=== PATIENT | female | born 1970 | race Hispanic/Latino ===

== ENCOUNTER → 2021-01-29 | Outpatient (CLI) | payer OTHER ==
[~2021-01-29] MED LIST: ATOR10 PO; BUDE10.22; CALC600T15 PO; CIPOTIC AD; DASA100T PO; FISH1CAP63 PO; GLIP10TA9 PO; INSLAN SQ; IOHEXOL-350 75 ML VIAL IV ONE; LACT10SO62 PO; LEVO500T2 PO; LOSA25TA41 PO; METF-446 PO; NITR0.4T SL; OLOP2.5D12 OP; TRAZ-185 PO
== END | disposition home or self-care (01) ==
LOC: RAH 09:19
PROVIDERS: ATTEND Family Medicine
DX: M79.604 Pain in right leg (principal); R60.0 Localized edema
CPT/HCPCS: 93971; Q9967

== ENCOUNTER → 2021-09-09 | Outpatient (CLI) | payer OTHER ==
[~2021-09-09] MED LIST changes: +CALC-1125 PO; -CALC600T15 PO; +HONEY 1 APPL/ML TUBE TP ONE; -IOHEXOL-350 75 ML VIAL IV ONE; +LIDOCAINE HCL 4% LTA SOL 4 ML VIAL TP ONE
== END | disposition home or self-care (01) ==
LOC: WHH 10:19
PROVIDERS: ATTEND Family Medicine
DX: T81.89XD Other complications of procedures, not elsewhere classified, subsequent encounter (principal); E11.621 Type 2 diabetes mellitus with foot ulcer; L97.522 Non-pressure chronic ulcer of other part of left foot with fat layer exposed; L02.31 Cutaneous abscess of buttock; C57.4 Malignant neoplasm of uterine adnexa, unspecified; K74.60 Unspecified cirrhosis of liver; R18.0 Malignant ascites; Z79.4 Long term (current) use of insulin; Z79.899 Other long term (current) drug therapy; Z85.528 Personal history of other malignant neoplasm of kidney; Y83.8 Other surgical procedures as the cause of abnormal reaction of the patient, or of later complication, without mention of misadventure at the time of the procedure
CPT/HCPCS: G0463

== ENCOUNTER → 2021-09-23 | Outpatient (CLI) | payer OTHER ==
[~2021-09-23] MED LIST changes: -HONEY 1 APPL/ML TUBE TP ONE; -LIDOCAINE HCL 4% LTA SOL 4 ML VIAL TP ONE
[2021-09-23 11:41] LABS: BASOPHILS % (AUTO) 0.5 % (0.0-5.0); EOSINOPHILS % (AUTO) 0.5 % (0.0-8.0); HEMATOCRIT 40.3 % (36-48); LYMPHOCYTES % (AUTO) 20.9 % (21.0-51.0); MEAN CORPUSCULAR HEMOGLOBIN 31.7 pg (27.0-33.0); MEAN CORPUSCULAR HGB CONC 32.8 g/dL (32.0-36.0); MEAN CORPUSCULAR VOLUME 96.6 fL (79-99); MONOCYTES % (AUTO) 8.6 % (3.0-13.0); NEUTROPHILS % (AUTO) 68.8 % (40.0-77.0); PLATELET COUNT (AUTO) 179 K/uL (130-400); RED BLOOD CELL COUNT(AUTO) 4.17 MIL/uL (4.00-5.50); RED CELL DISTRIBUTION WIDTH 12.9 % (11.0-15.5); WHITE BLOOD COUNT (AUTO) 10.7 K/uL (4.8-10.8)
== END | disposition home or self-care (01) ==
LOC: WHH 10:04
PROVIDERS: ATTEND Family Medicine
DX: T81.89XD Other complications of procedures, not elsewhere classified, subsequent encounter (principal); E11.621 Type 2 diabetes mellitus with foot ulcer; L97.522 Non-pressure chronic ulcer of other part of left foot with fat layer exposed; S31.809D Unspecified open wound of unspecified buttock, subsequent encounter; E11.52 Type 2 diabetes mellitus with diabetic peripheral angiopathy with gangrene; I96 Gangrene, not elsewhere classified; L02.31 Cutaneous abscess of buttock; C57.4 Malignant neoplasm of uterine adnexa, unspecified; K74.60 Unspecified cirrhosis of liver; R18.0 Malignant ascites; Z79.4 Long term (current) use of insulin; Z79.899 Other long term (current) drug therapy; Z85.828 Personal history of other malignant neoplasm of skin; Y83.8 Other surgical procedures as the cause of abnormal reaction of the patient, or of later complication, without mention of misadventure at the time of the procedure; X58.XXXD Exposure to other specified factors, subsequent encounter
CPT/HCPCS: 36415; 85025; G0463

== ENCOUNTER 2021-10-07 17:01 | Observation (INO) | payer OTHER ==
[~2021-10-07] VITALS: Ht 154.9 cm; Wt 78.7 kg
[~2021-10-07 17:01] MED LIST changes: -APIX5TAB PO; -ATOR40TA69 PO; -GABA-529 PO; -MIDO10TA PO; -PHARMACY COMMUNICATION MISC SCH
[2021-10-07 18:27] LABS: HEMATOCRIT 34.5 % (36-48); MEAN CORPUSCULAR HGB CONC 31.6 g/dL (32.0-36.0); RED BLOOD CELL COUNT(AUTO) 3.52 MIL/uL (4.00-5.50); RED CELL DISTRIBUTION WIDTH 14.1 % (11.0-15.5); WHITE BLOOD COUNT (AUTO) 9.5 K/uL (4.8-10.8)
[2021-10-07 18:43] LABS: CREATININE 1.3 mg/dL (0.5-1.5); POTASSIUM 3.9 mmol/L (3.5-5.1)
[2021-10-07 18:46] LABS: INR 1.09 (0.85-1.15); PROTHROMBIN TIME 11.8 SEC (9.6-11.6)
[2021-10-07 18:47] LABS: ALBUMIN 1.5 g/dL (3.5-5.0); BILIRUBIN,TOTAL 0.2 mg/dL (0.2-1.0)
[2021-10-07] MEDS ORDERED: VANCOMYCIN PROTOCOL PER PHARMACY IV SCH (20:00)
[2021-10-07] MEDS ORDERED: VANCOMYCIN 1.5GM/NS 250ML IV ONE ×2 (20:30)
[2021-10-07 22:30] VITALS: BP 95/64
[2021-10-07] MEDS: ZOSYN 3.375GM +NS 50ML IV SCH (23:18)
[2021-10-07] MEDS ORDERED: ACETAMINOPHEN 325 MG TAB PO PRN (23:30)
[2021-10-07] MEDS ORDERED: ACETAMINOPHEN 650 MG SUPPOSITORY RC PRN (23:30)
[2021-10-07] MEDS ORDERED: CLONIDINE HCL 0.1 MG TABLET PO PRN (23:30)
[2021-10-07] MEDS: 0.9%NACL 1000ML 1,000 ML IV SCH (23:30)
[2021-10-07] MEDS ORDERED: HYDRALAZINE 20MG/ML VIAL IV PRN (23:30)
[2021-10-07] MEDS ORDERED: MORPHINE 2 MG SYG IVP PRN (23:30)
[2021-10-08] VITALS (21 sets, daily range): BP systolic 85–99; BP diastolic 51–62
[2021-10-08 04:52] LABS: BASOPHILS % (AUTO) 0.5 % (0.0-5.0); EOSINOPHILS % (AUTO) 0.9 % (0.0-8.0); HEMATOCRIT 32.9 % (36-48); LYMPHOCYTES % (AUTO) 26.1 % (21.0-51.0); MEAN CORPUSCULAR HEMOGLOBIN 30.4 pg (27.0-33.0); MEAN CORPUSCULAR HGB CONC 31.6 g/dL (32.0-36.0); MEAN CORPUSCULAR VOLUME 96.2 fL (79-99); MONOCYTES % (AUTO) 7.6 % (3.0-13.0); NEUTROPHILS % (AUTO) 64.6 % (40.0-77.0); PLATELET COUNT (AUTO) 151 K/uL (130-400); RED BLOOD CELL COUNT(AUTO) 3.42 MIL/uL (4.00-5.50); RED CELL DISTRIBUTION WIDTH 13.8 % (11.0-15.5); WHITE BLOOD COUNT (AUTO) 7.8 K/uL (4.8-10.8)
[2021-10-08 05:12] LABS: CREATININE 1.2 mg/dL (0.5-1.5); POTASSIUM 3.6 mmol/L (3.5-5.1)
[2021-10-08 05:50] LABS: INR 1.05 (0.85-1.15); PROTHROMBIN TIME 10.9 SEC (9.6-11.6)
[2021-10-08] MEDS: ZOSYN 3.375GM +NS 50ML IV SCH ×3 (06:31→20:28)
[2021-10-08] MEDS: INSULIN HUMULIN R 100 UNIT/ML 3ML SQ SCH ×4 (07:30→21:00)
[2021-10-08] MEDS: 0.9%NACL 1000ML 1,000 ML IV SCH ×3 (07:30→15:30)
[2021-10-08] MEDS ORDERED: MIDO10TA PO (07:51)
[2021-10-08] MEDS ORDERED: ATOR40TA69 PO (07:55)
[2021-10-08] MEDS ORDERED: APIX5TAB PO (07:59)
[2021-10-08] MEDS ORDERED: HYDROMORPHONE 0.5 MG SYG (0.5MG/0.5ML) IVP PRN (08:00)
[2021-10-08] MEDS ORDERED: GABA-529 PO (08:02)
[2021-10-08] MEDS: ASPIRIN 81MG CHEW TAB PO SCH (08:06)
[2021-10-08] MEDS: POLYETHYLENE GLYCOL 3350 17 GM POWD.PACK PO SCH (08:07)
[2021-10-08] MEDS ORDERED: VANCOMYCIN 500MG+NS 100ML 100 ML IV SCH (09:00)
[2021-10-08] MEDS ORDERED: PANTOPRAZOLE 40 MG TAB DR PO SCH (09:00)
[2021-10-08] MEDS: ENOXAPARIN SODIUM 40 MG/0.4 ML SYRINGE SQ SCH (09:00)
[2021-10-08] MEDS ORDERED: VANCOMYCIN 500MG VIAL IVPB SCH (12:30)
[2021-10-08] MEDS: VANCOMYCIN 500MG+NS 100ML 100 ML IV SCH ×2 (12:30→20:12)
[2021-10-08] MEDS: 0.9%NACL 100ML IVPB SCH ×2 (12:30→20:29)
[2021-10-08] MEDS ORDERED: BUPIVACAINE/PF 0.5% 30ML VIAL ONE (13:04)
[2021-10-08] MEDS ORDERED: LIDOCAINE HCL 1% 20 ML VIAL ONE (13:04)
[2021-10-08] MEDS ORDERED: MIDAZOLAM HCL 1 MG/ML 2ML VIAL ONE (13:27)
[2021-10-08] MEDS ORDERED: PROPOFOL 10 MG/ML 20ML VIAL IV ONE (13:27)
[2021-10-08] MEDS ORDERED: KETAMINE 50MG/ML SYRINGE 50 MG/ML DISP.SYRIN IV ONE (13:29)
[2021-10-08] MEDS ORDERED: DEXTROSE 50%-WATER 50 ML DISP.SYRIN IV SCH (15:00)
[2021-10-08] MEDS: HYDROMORPHONE 0.5 MG SYG (0.5MG/0.5ML) IVP PRN (19:11)
[2021-10-08] MEDS: HYDROCODONE/ACETAMINOPHEN 5/325 MG TAB PO PRN (22:18)
[2021-10-09 03:10] VITALS: BP 90/54
[2021-10-09] MEDS: HYDROMORPHONE 0.5 MG SYG (0.5MG/0.5ML) IVP PRN (03:45)
[2021-10-09 04:29] LABS: HEMATOCRIT 31.5 % (36-48); MEAN CORPUSCULAR HEMOGLOBIN 30.5 pg (27.0-33.0); MEAN CORPUSCULAR HGB CONC 31.7 g/dL (32.0-36.0); RED BLOOD CELL COUNT(AUTO) 3.28 MIL/uL (4.00-5.50); RED CELL DISTRIBUTION WIDTH 14.1 % (11.0-15.5); WHITE BLOOD COUNT (AUTO) 6.1 K/uL (4.8-10.8)
[2021-10-09 04:41] LABS: CREATININE 0.9 mg/dL (0.5-1.5); MAGNESIUM 2.1 mg/dL (1.80-2.40); PHOSPHORUS 5.2 mg/dL (2.5-4.9); POTASSIUM 4.2 mmol/L (3.5-5.1)
[2021-10-09] MEDS ORDERED: PANTOPRAZOLE 40 MG TAB DR ONE (04:58)
[2021-10-09] MEDS: ZOSYN 3.375GM +NS 50ML IV SCH ×2 (05:18→14:00)
[2021-10-09] MEDS: INSULIN HUMULIN R 100 UNIT/ML 3ML SQ SCH ×3 (06:38→16:30)
[2021-10-09] MEDS ORDERED: PANTOPRAZOLE 40 MG TAB DR PO SCH (07:30)
[2021-10-09] MEDS: 0.9%NACL 1000ML 1,000 ML IV SCH ×2 (07:30→15:30)
[2021-10-09 07:58] VITALS: BP 104/67
[2021-10-09] MEDS: HYDROCODONE/ACETAMINOPHEN 5/325 MG TAB PO PRN (08:34)
[2021-10-09] MEDS: POLYETHYLENE GLYCOL 3350 17 GM POWD.PACK PO SCH (08:35)
[2021-10-09] MEDS: ASPIRIN 81MG CHEW TAB PO SCH (08:35)
[2021-10-09] MEDS: VANCOMYCIN 500MG+NS 100ML 100 ML IV SCH (09:00)
[2021-10-09] MEDS: 0.9%NACL 100ML IVPB SCH (09:00)
[2021-10-09] MEDS: ENOXAPARIN SODIUM 40 MG/0.4 ML SYRINGE SQ SCH (09:00)
[2021-10-09] MEDS ORDERED: MUPIROCIN OINTMENT 22 GM TUBE TP SCH (09:00)
[2021-10-09 12:00] VITALS: BP 90/57
[2021-10-09 16:00] VITALS: BP 100/50
== END 2021-10-09 18:00 | disposition home or self-care (01) ==
LOC: EDH 17:01 → EDHIP 17:02 → 3CH 22:11
PROVIDERS: ADMIT Internal Medicine Critical Care Medicine; ATTEND Internal Medicine Critical Care Medicine
DX: I96 Gangrene, not elsewhere classified (principal); Z20.822 Contact with and (suspected) exposure to COVID-19; E11.621 Type 2 diabetes mellitus with foot ulcer; L97.529 Non-pressure chronic ulcer of other part of left foot with unspecified severity; L03.032 Cellulitis of left toe; E11.52 Type 2 diabetes mellitus with diabetic peripheral angiopathy with gangrene; I10 Essential (primary) hypertension; E78.5 Hyperlipidemia, unspecified; C56.9 Malignant neoplasm of unspecified ovary; K74.60 Unspecified cirrhosis of liver; R18.8 Other ascites; C92.10 Chronic myeloid leukemia, BCR/ABL-positive, not having achieved remission; Z87.891 Personal history of nicotine dependence; Z79.01 Long term (current) use of anticoagulants; Z79.4 Long term (current) use of insulin; Z79.51 Long term (current) use of inhaled steroids; Z79.82 Long term (current) use of aspirin; Z79.84 Long term (current) use of oral hypoglycemic drugs; Z86.718 Personal history of other venous thrombosis and embolism; Z85.528 Personal history of other malignant neoplasm of kidney; Z79.899 Other long term (current) drug therapy; Z85.038 Personal history of other malignant neoplasm of large intestine; Z85.42 Personal history of malignant neoplasm of other parts of uterus; Z90.5 Acquired absence of kidney; Z92.21 Personal history of antineoplastic chemotherapy
CPT/HCPCS: 28820; 36415 ×3; 71045; 80048 ×2; 80053; 80202; 82550 ×2; 82948 ×7; 83735; 83874 ×2; 84100; 84145; 84484 ×2; 85025; 85027 ×2; 85610 ×2; 86850; 86900; 86901; 87070; 87076; 87077; 87186; 87205; 87635; 93005; 93925; 96365; 96366 ×2; 96368; 96375; 96376 ×2; A4215; A4221; A4222; A4223; A6446; G0378 ×42; G0463; J1170 ×2; J1650; J2250; J2543 ×4; J2704; J3370 ×4; J3490 ×2; J7030; J7050

== ENCOUNTER → 2021-10-07 | Outpatient (CLI) | payer OTHER ==
[~2021-10-07] MED LIST changes: +APIX5TAB PO; +ATOR40TA69 PO; +GABA-529 PO; +MIDO10TA PO; +PHARMACY COMMUNICATION MISC SCH
== END | disposition home or self-care (01) ==
LOC: WHH 13:40
PROVIDERS: ATTEND Family Medicine
DX: T81.89XD Other complications of procedures, not elsewhere classified, subsequent encounter (principal); E11.621 Type 2 diabetes mellitus with foot ulcer; L97.522 Non-pressure chronic ulcer of other part of left foot with fat layer exposed; S31.809D Unspecified open wound of unspecified buttock, subsequent encounter; L02.31 Cutaneous abscess of buttock; E11.52 Type 2 diabetes mellitus with diabetic peripheral angiopathy with gangrene; I96 Gangrene, not elsewhere classified; C57.4 Malignant neoplasm of uterine adnexa, unspecified; K74.60 Unspecified cirrhosis of liver; R18.0 Malignant ascites; Z79.4 Long term (current) use of insulin; Z79.899 Other long term (current) drug therapy; Z85.828 Personal history of other malignant neoplasm of skin; Y83.8 Other surgical procedures as the cause of abnormal reaction of the patient, or of later complication, without mention of misadventure at the time of the procedure; X58.XXXD Exposure to other specified factors, subsequent encounter
CPT/HCPCS: G0463

== ENCOUNTER → 2021-10-14 | Outpatient (CLI) | payer OTHER ==
[~2021-10-14] MED LIST changes: +APIX5TAB PO; +ATOR40TA69 PO; +GABA-529 PO; +MIDO10TA PO
== END | disposition home or self-care (01) ==
LOC: WHH 13:34
PROVIDERS: ATTEND Family Medicine
DX: T87.89 Other complications of amputation stump (principal); E11.621 Type 2 diabetes mellitus with foot ulcer; L97.522 Non-pressure chronic ulcer of other part of left foot with fat layer exposed; S31.110A Laceration without foreign body of abdominal wall, right upper quadrant without penetration into peritoneal cavity, initial encounter; S31.809D Unspecified open wound of unspecified buttock, subsequent encounter; L02.31 Cutaneous abscess of buttock; E11.52 Type 2 diabetes mellitus with diabetic peripheral angiopathy with gangrene; I96 Gangrene, not elsewhere classified; C57.4 Malignant neoplasm of uterine adnexa, unspecified; K74.60 Unspecified cirrhosis of liver; R18.0 Malignant ascites; Z79.4 Long term (current) use of insulin; Z79.899 Other long term (current) drug therapy; Z85.828 Personal history of other malignant neoplasm of skin; Y83.5 Amputation of limb(s) as the cause of abnormal reaction of the patient, or of later complication, without mention of misadventure at the time of the procedure; Y92.238 Other place in hospital as the place of occurrence of the external cause; X58.XXXA Exposure to other specified factors, initial encounter; Y93.89 Activity, other specified; Y92.89 Other specified places as the place of occurrence of the external cause; Y99.8 Other external cause status
CPT/HCPCS: G0463

== ENCOUNTER → 2021-10-24 | Outpatient (CLI) | payer OTHER, MEDICARE ==
[~2021-10-24] MED LIST changes: -ATOR10 PO; -BUDE10.22; -CIPOTIC AD; -DASA100T PO; -FISH1CAP63 PO; -GLIP10TA9 PO; -INSLAN SQ; -LACT10SO62 PO; -LEVO500T2 PO; +LIDOCAINE HCL 4% LTA SOL 4 ML VIAL TP ONE; -LOSA25TA41 PO; -METF-446 PO; -NITR0.4T SL; -OLOP2.5D12 OP; -TRAZ-185 PO
== END | disposition home or self-care (01) ==
LOC: WHH 11:12
PROVIDERS: ATTEND Family Medicine
DX: T87.89 Other complications of amputation stump (principal); E11.621 Type 2 diabetes mellitus with foot ulcer; L97.522 Non-pressure chronic ulcer of other part of left foot with fat layer exposed; E11.52 Type 2 diabetes mellitus with diabetic peripheral angiopathy with gangrene; I96 Gangrene, not elsewhere classified; C57.4 Malignant neoplasm of uterine adnexa, unspecified; K74.60 Unspecified cirrhosis of liver; R18.0 Malignant ascites; Z79.4 Long term (current) use of insulin; Z79.899 Other long term (current) drug therapy; Z85.828 Personal history of other malignant neoplasm of skin; Y83.5 Amputation of limb(s) as the cause of abnormal reaction of the patient, or of later complication, without mention of misadventure at the time of the procedure
CPT/HCPCS: G0463

== ENCOUNTER → 2021-10-31 | Outpatient (CLI) | payer OTHER, MEDICARE ==
[~2021-10-31] MED LIST changes: -LIDOCAINE HCL 4% LTA SOL 4 ML VIAL TP ONE
== END | disposition home or self-care (01) ==
LOC: WHH 10:55
PROVIDERS: ATTEND Family Medicine
DX: T87.89 Other complications of amputation stump (principal); T81.89XA Other complications of procedures, not elsewhere classified, initial encounter; E11.621 Type 2 diabetes mellitus with foot ulcer; L97.522 Non-pressure chronic ulcer of other part of left foot with fat layer exposed; L89.626 Pressure-induced deep tissue damage of left heel; L97.421 Non-pressure chronic ulcer of left heel and midfoot limited to breakdown of skin; E11.622 Type 2 diabetes mellitus with other skin ulcer; L89.152 Pressure ulcer of sacral region, stage 2; L98.491 Non-pressure chronic ulcer of skin of other sites limited to breakdown of skin; E11.52 Type 2 diabetes mellitus with diabetic peripheral angiopathy with gangrene; I96 Gangrene, not elsewhere classified; C57.4 Malignant neoplasm of uterine adnexa, unspecified; K74.60 Unspecified cirrhosis of liver; R18.0 Malignant ascites; Z79.4 Long term (current) use of insulin; Z79.899 Other long term (current) drug therapy; Z85.828 Personal history of other malignant neoplasm of skin; Y83.5 Amputation of limb(s) as the cause of abnormal reaction of the patient, or of later complication, without mention of misadventure at the time of the procedure; Y83.8 Other surgical procedures as the cause of abnormal reaction of the patient, or of later complication, without mention of misadventure at the time of the procedure; Y92.238 Other place in hospital as the place of occurrence of the external cause
CPT/HCPCS: G0463

== ENCOUNTER → 2021-11-07 | Outpatient (CLI) | payer OTHER, MEDICARE ==
[~2021-11-07] MED LIST changes: +LIDOCAINE HCL 4% LTA SOL 4 ML VIAL TP ONE
== END | disposition home or self-care (01) ==
LOC: WHH 10:46
PROVIDERS: ATTEND Family Medicine
DX: T87.89 Other complications of amputation stump (principal); T81.89XD Other complications of procedures, not elsewhere classified, subsequent encounter; E11.621 Type 2 diabetes mellitus with foot ulcer; L97.522 Non-pressure chronic ulcer of other part of left foot with fat layer exposed; L89.626 Pressure-induced deep tissue damage of left heel; L97.421 Non-pressure chronic ulcer of left heel and midfoot limited to breakdown of skin; L03.311 Cellulitis of abdominal wall; E11.52 Type 2 diabetes mellitus with diabetic peripheral angiopathy with gangrene; I96 Gangrene, not elsewhere classified; C57.4 Malignant neoplasm of uterine adnexa, unspecified; K74.60 Unspecified cirrhosis of liver; R18.0 Malignant ascites; Z79.4 Long term (current) use of insulin; Z79.899 Other long term (current) drug therapy; Z85.828 Personal history of other malignant neoplasm of skin; Y83.5 Amputation of limb(s) as the cause of abnormal reaction of the patient, or of later complication, without mention of misadventure at the time of the procedure; Y83.8 Other surgical procedures as the cause of abnormal reaction of the patient, or of later complication, without mention of misadventure at the time of the procedure
CPT/HCPCS: G0463

== ENCOUNTER → 2021-11-14 | Outpatient (CLI) | payer OTHER, MEDICARE ==
[~2021-11-14] MED LIST changes: -LIDOCAINE HCL 4% LTA SOL 4 ML VIAL TP ONE
== END | disposition home or self-care (01) ==
LOC: WHH 11:00
PROVIDERS: ATTEND Family Medicine
DX: T87.89 Other complications of amputation stump (principal); E11.621 Type 2 diabetes mellitus with foot ulcer; L97.522 Non-pressure chronic ulcer of other part of left foot with fat layer exposed; L89.626 Pressure-induced deep tissue damage of left heel; L97.421 Non-pressure chronic ulcer of left heel and midfoot limited to breakdown of skin; L03.311 Cellulitis of abdominal wall; L03.116 Cellulitis of left lower limb; E11.52 Type 2 diabetes mellitus with diabetic peripheral angiopathy with gangrene; I96 Gangrene, not elsewhere classified; C57.4 Malignant neoplasm of uterine adnexa, unspecified; R23.3 Spontaneous ecchymoses; K74.60 Unspecified cirrhosis of liver; R18.0 Malignant ascites; Z79.4 Long term (current) use of insulin; Z79.899 Other long term (current) drug therapy; Z85.828 Personal history of other malignant neoplasm of skin; Y83.5 Amputation of limb(s) as the cause of abnormal reaction of the patient, or of later complication, without mention of misadventure at the time of the procedure
CPT/HCPCS: 11042; 11045; A4450; A6209

== ENCOUNTER → 2021-11-21 | Outpatient (CLI) | payer OTHER, MEDICARE ==
[~2021-11-21] MED LIST changes: +LIDOCAINE HCL 4% LTA SOL 4 ML VIAL TP ONE
== END | disposition home or self-care (01) ==
LOC: WHH 10:52
PROVIDERS: ATTEND Family Medicine
DX: T87.89 Other complications of amputation stump (principal); E11.621 Type 2 diabetes mellitus with foot ulcer; L97.522 Non-pressure chronic ulcer of other part of left foot with fat layer exposed; L89.626 Pressure-induced deep tissue damage of left heel; L97.421 Non-pressure chronic ulcer of left heel and midfoot limited to breakdown of skin; L03.311 Cellulitis of abdominal wall; L03.116 Cellulitis of left lower limb; E11.52 Type 2 diabetes mellitus with diabetic peripheral angiopathy with gangrene; I96 Gangrene, not elsewhere classified; C57.4 Malignant neoplasm of uterine adnexa, unspecified; R23.3 Spontaneous ecchymoses; K74.60 Unspecified cirrhosis of liver; R18.0 Malignant ascites; Z79.4 Long term (current) use of insulin; Z79.899 Other long term (current) drug therapy; Z85.828 Personal history of other malignant neoplasm of skin; Y83.5 Amputation of limb(s) as the cause of abnormal reaction of the patient, or of later complication, without mention of misadventure at the time of the procedure
CPT/HCPCS: G0463

== ENCOUNTER → 2021-12-12 | Outpatient (CLI) | payer OTHER, MEDICARE | END | disposition home or self-care (01) | LOC: WHH 10:53 | PROVIDERS: ATTEND Family Medicine | DX: T87.89 Other complications of amputation stump (principal); E11.621 Type 2 diabetes mellitus with foot ulcer; L97.522 Non-pressure chronic ulcer of other part of left foot with fat layer exposed; L89.622 Pressure ulcer of left heel, stage 2; L97.422 Non-pressure chronic ulcer of left heel and midfoot with fat layer exposed; E11.52 Type 2 diabetes mellitus with diabetic peripheral angiopathy with gangrene; I96 Gangrene, not elsewhere classified; L03.311 Cellulitis of abdominal wall; L03.116 Cellulitis of left lower limb; R18.0 Malignant ascites; R23.3 Spontaneous ecchymoses; K74.60 Unspecified cirrhosis of liver; C57.4 Malignant neoplasm of uterine adnexa, unspecified; Z85.828 Personal history of other malignant neoplasm of skin; Z79.4 Long term (current) use of insulin; Z79.899 Other long term (current) drug therapy; Y83.5 Amputation of limb(s) as the cause of abnormal reaction of the patient, or of later complication, without mention of misadventure at the time of the procedure | CPT/HCPCS: 11042; 11045 ==

== ENCOUNTER → 2022-02-06 | Outpatient (CLI) | payer OTHER, MEDICARE | END | disposition home or self-care (01) | LOC: WHH 11:01 | PROVIDERS: ATTEND Family Medicine | DX: T87.89 Other complications of amputation stump (principal); E11.621 Type 2 diabetes mellitus with foot ulcer; L97.522 Non-pressure chronic ulcer of other part of left foot with fat layer exposed; L89.622 Pressure ulcer of left heel, stage 2; S71.002D Unspecified open wound, left hip, subsequent encounter; S91.104D Unspecified open wound of right lesser toe(s) without damage to nail, subsequent encounter; S71.001D Unspecified open wound, right hip, subsequent encounter; E11.52 Type 2 diabetes mellitus with diabetic peripheral angiopathy with gangrene; I96 Gangrene, not elsewhere classified; L03.311 Cellulitis of abdominal wall; L03.116 Cellulitis of left lower limb; R18.0 Malignant ascites; R23.3 Spontaneous ecchymoses; K74.60 Unspecified cirrhosis of liver; C57.4 Malignant neoplasm of uterine adnexa, unspecified; Z85.828 Personal history of other malignant neoplasm of skin; Z79.4 Long term (current) use of insulin; Z79.899 Other long term (current) drug therapy; Y83.5 Amputation of limb(s) as the cause of abnormal reaction of the patient, or of later complication, without mention of misadventure at the time of the procedure; X58.XXXD Exposure to other specified factors, subsequent encounter | CPT/HCPCS: 11042; 11045; G0463 ==

== ENCOUNTER → 2022-02-13 | Outpatient (CLI) | payer OTHER, MEDICARE | END | disposition home or self-care (01) | LOC: WHH 11:03 | PROVIDERS: ATTEND Family Medicine | DX: T87.89 Other complications of amputation stump (principal); E11.621 Type 2 diabetes mellitus with foot ulcer; L97.522 Non-pressure chronic ulcer of other part of left foot with fat layer exposed; L89.623 Pressure ulcer of left heel, stage 3; E11.622 Type 2 diabetes mellitus with other skin ulcer; L98.491 Non-pressure chronic ulcer of skin of other sites limited to breakdown of skin; S71.002D Unspecified open wound, left hip, subsequent encounter; S91.104D Unspecified open wound of right lesser toe(s) without damage to nail, subsequent encounter; S71.001D Unspecified open wound, right hip, subsequent encounter; E11.52 Type 2 diabetes mellitus with diabetic peripheral angiopathy with gangrene; I96 Gangrene, not elsewhere classified; L03.116 Cellulitis of left lower limb; R18.0 Malignant ascites; R23.3 Spontaneous ecchymoses; K74.60 Unspecified cirrhosis of liver; C57.4 Malignant neoplasm of uterine adnexa, unspecified; Z85.828 Personal history of other malignant neoplasm of skin; Z79.4 Long term (current) use of insulin; Z79.899 Other long term (current) drug therapy; Y83.5 Amputation of limb(s) as the cause of abnormal reaction of the patient, or of later complication, without mention of misadventure at the time of the procedure; X58.XXXD Exposure to other specified factors, subsequent encounter | CPT/HCPCS: G0463 ==

== ENCOUNTER → 2022-02-20 | Outpatient (CLI) | payer OTHER, MEDICARE ==
[~2022-02-20] MED LIST changes: +CALC-1058 PO; +CEFD300C3 PO; +COLL30OI TP; +FERR324T PO; +FURO20TA4 PO; +LEVO5TAB13 PO; +MUPI22OI2 TP; +MV-M1TAB57 PO; +SENN-216 PO
== END ==
LOC: WHH 10:19
PROVIDERS: ATTEND Family Medicine
DX: T87.89 Other complications of amputation stump (principal); E11.621 Type 2 diabetes mellitus with foot ulcer; L97.522 Non-pressure chronic ulcer of other part of left foot with fat layer exposed; L89.623 Pressure ulcer of left heel, stage 3; S71.002D Unspecified open wound, left hip, subsequent encounter; S91.104D Unspecified open wound of right lesser toe(s) without damage to nail, subsequent encounter; S71.001D Unspecified open wound, right hip, subsequent encounter; E11.52 Type 2 diabetes mellitus with diabetic peripheral angiopathy with gangrene; I96 Gangrene, not elsewhere classified; R18.0 Malignant ascites; R23.3 Spontaneous ecchymoses; K74.60 Unspecified cirrhosis of liver; C57.4 Malignant neoplasm of uterine adnexa, unspecified; Z79.4 Long term (current) use of insulin; Z79.899 Other long term (current) drug therapy; Z85.528 Personal history of other malignant neoplasm of kidney; Y83.5 Amputation of limb(s) as the cause of abnormal reaction of the patient, or of later complication, without mention of misadventure at the time of the procedure; X58.XXXD Exposure to other specified factors, subsequent encounter
CPT/HCPCS: 11042; 11045

== ENCOUNTER 2022-02-25 17:17 | Inpatient (IN) | payer OTHER, MEDICARE ==
[~2022-02-25] VITALS: Ht 152.4 cm; Wt 78.7 kg
[~2022-02-25 17:17] MED LIST changes: -CALC-1058 PO; -CEFD300C3 PO; -COLL30OI TP; -FERR324T PO; -FURO20TA4 PO; -LEVO5TAB13 PO; -LIDOCAINE HCL 4% LTA SOL 4 ML VIAL TP ONE; -MUPI22OI2 TP; -MV-M1TAB57 PO; -SENN-216 PO
[2022-02-25 18:04] LABS: BASOPHILS % (AUTO) 0.5 % (0.0-5.0); EOSINOPHILS % (AUTO) 0.9 % (0.0-8.0); HEMATOCRIT 29.8 % (36-48); LYMPHOCYTES % (AUTO) 17.6 % (21.0-51.0); MEAN CORPUSCULAR HEMOGLOBIN 31.6 pg (27.0-33.0); MEAN CORPUSCULAR HGB CONC 31.9 g/dL (32.0-36.0); MONOCYTES % (AUTO) 6.6 % (3.0-13.0); NEUTROPHILS % (AUTO) 73.9 % (40.0-77.0); PLATELET COUNT (AUTO) 173 K/uL (130-400); RED BLOOD CELL COUNT(AUTO) 3.01 MIL/uL (4.00-5.50); RED CELL DISTRIBUTION WIDTH 13.3 % (11.0-15.5); WHITE BLOOD COUNT (AUTO) 7.8 K/uL (4.8-10.8)
[2022-02-25 18:19] LABS: ALBUMIN 1.9 g/dL (3.5-5.0); BILIRUBIN,TOTAL 0.3 mg/dL (0.2-1.0); CREATININE 2.1 mg/dL (0.5-1.5); TOTAL PROTEIN, SERUM 6.7 g/dL (6.0-8.3)
[2022-02-25 18:50] LABS: INR 0.97 (0.85-1.15); PARTIAL THROMBOPLASTIN TIME 23.7 SEC (26.3-35.5); PROTHROMBIN TIME 10.6 SEC (9.6-11.6)
[2022-02-25] MEDS ORDERED: VANCOMYCIN PROTOCOL PER PHARMACY IV SCH (20:00)
[2022-02-25] MEDS ORDERED: ACETAMINOPHEN 325 MG TAB PO PRN (20:00)
[2022-02-25] MEDS ORDERED: LACTULOSE 20 GM/30 ML UDCUP PO PRN (20:00)
[2022-02-25] MEDS ORDERED: ONDANSETRON 4MG INJ IVP PRN (20:00)
[2022-02-25] MEDS: 0.9%NACL 1000ML 1,000 ML IV SCH (20:15)
[2022-02-25] MEDS ORDERED: ZOSYN 3.375GM +NS 50ML IV SCH (21:00)
[2022-02-25] MEDS ORDERED: POTASSIUM CHLORIDE 20MEQ/100ML 100 ML IV PRN ×2 (21:30)
[2022-02-25] MEDS ORDERED: DEXTROSE 50%-WATER 50 ML DISP.SYRIN IV PRN (21:30)
[2022-02-25] MEDS ORDERED: GLUCAGON 1MG KIT 1 MG ML IM PRN (21:30)
[2022-02-25] MEDS ORDERED: LIDOCAINE HCL-MPF 1% 2ML VIAL IV PRN ×2 (21:30)
[2022-02-25] MEDS ORDERED: INSULIN HUMULIN R 100 UNIT/ML 3ML ONE (21:30)
[2022-02-25] MEDS ORDERED: POTASSIUM CHLORIDE 10% ELIXIR 20 MEQ/15 ML UDCUP PO PRN (21:30)
[2022-02-25] MEDS: VANCOMYCIN 1G/250ML KIT 250 ML IV SCH (22:05)
[2022-02-25 22:45] VITALS: BP 133/69
[2022-02-25] MEDS ORDERED: FERR324T PO (23:13)
[2022-02-25] MEDS ORDERED: SENN-216 PO (23:13)
[2022-02-25] MEDS ORDERED: FURO20TA4 PO (23:13)
[2022-02-25] MEDS ORDERED: COLL30OI TP (23:13)
[2022-02-25] MEDS ORDERED: MUPI22OI2 TP (23:13)
[2022-02-25] MEDS ORDERED: CALC-1058 PO (23:13)
[2022-02-25] MEDS ORDERED: MV-M1TAB57 PO (23:13)
[2022-02-25] MEDS ORDERED: LEVO5TAB13 PO (23:13)
[2022-02-25] MEDS ORDERED: CEFD300C3 PO (23:15)
[2022-02-26] VITALS (19 sets, daily range): BP systolic 80–133; BP diastolic 43–72
[2022-02-26] MEDS: 0.9%NACL 1000ML 1,000 ML IV SCH ×3 (01:01→16:00)
[2022-02-26 03:30] LABS: BASOPHILS % (AUTO) 0.5 % (0.0-5.0); EOSINOPHILS % (AUTO) 1.6 % (0.0-8.0); HEMATOCRIT 27.8 % (36-48); LYMPHOCYTES % (AUTO) 19.4 % (21.0-51.0); MEAN CORPUSCULAR HEMOGLOBIN 31.7 pg (27.0-33.0); MEAN CORPUSCULAR HGB CONC 32.4 g/dL (32.0-36.0); MEAN CORPUSCULAR VOLUME 97.9 fL (79-99); MONOCYTES % (AUTO) 8.9 % (3.0-13.0); PLATELET COUNT (AUTO) 153 K/uL (130-400); RED BLOOD CELL COUNT(AUTO) 2.84 MIL/uL (4.00-5.50); RED CELL DISTRIBUTION WIDTH 13.5 % (11.0-15.5); WHITE BLOOD COUNT (AUTO) 6.4 K/uL (4.8-10.8)
[2022-02-26 03:45] LABS: CREATININE 1.8 mg/dL (0.5-1.5); MAGNESIUM 1.6 mg/dL (1.80-2.40); POTASSIUM 3.5 mmol/L (3.5-5.1)
[2022-02-26] MEDS: INSULIN HUMULIN R 100 UNIT/ML 3ML SQ SCH ×4 (06:25→21:25)
[2022-02-26] MEDS: METOCLOPRAMIDE 10 MG/2 ML VIAL IVP SCH ×4 (06:27→20:28)
[2022-02-26] MEDS ORDERED: CEFEPIME HCL 2 GM VIAL IVP SCH (06:30)
[2022-02-26] MEDS ORDERED: ACETAMINOPHEN 650 MG SUPPOSITORY RC PRN (07:00)
[2022-02-26] MEDS ORDERED: RENAL DOSE IV PRN (07:00)
[2022-02-26] MEDS ORDERED: MAGNESIUM 2GM PREMIX 50ML 50 ML IV PRN (07:00)
[2022-02-26] MEDS: ENOXAPARIN SODIUM 80 MG/0.8 ML SQ SCH (08:28)
[2022-02-26] MEDS: CEFEPIME HCL 2 GM VIAL IVP SCH (09:11)
[2022-02-26] MEDS: MIDODRINE HCL 5 MG TABLET PO SCH ×3 (09:11→20:28)
[2022-02-26] MEDS: PANTOPRAZOLE 40 MG/VIAL IVP SCH (09:11)
[2022-02-26 09:44] LABS: APPEARANCE,URINE CLEAR (CLEAR); BILIRUBIN,URINE NEGATIVE (NEGATIVE); COLOR,URINE YELLOW (YELLOW); GLUCOSE, URINE (UA) NEGATIVE (NEGATIVE); KETONES,URINE NEGATIVE (NEGATIVE); LEUKOCYTE ESTERASE ,URINE NEGATIVE (NEGATIVE); NITRATE,URINE NEGATIVE (NEGATIVE); OCCULT BLOOD,URINE NEGATIVE (NEGATIVE); PROTEIN,URINE 30 mg/dL (NEGATIVE); UROBILINOGEN,URINE 0.2 mg/dL (0.2-1.0)
[2022-02-26 09:49] LABS: BACTERIA,URINE Rare /HPF (None Seen); RBC,URINE 0-1 /HPF (0-1); SQUAMOUS EPITHELIAL CELL,UR Rare /HPF (0-2); WBC,URINE 0-1 /HPF (0-1)
[2022-02-26] MEDS ORDERED: BUPIVACAINE/PF 0.25% 30ML VIAL IJ ONE (13:12)
[2022-02-26] MEDS ORDERED: LIDOCAINE HCL 1% 20 ML VIAL ONE (13:12)
[2022-02-26] MEDS ORDERED: FENTANYL CITRATE PF 50 MCG/1 ML 2ML VIAL ONE (13:18)
[2022-02-26] MEDS ORDERED: MIDAZOLAM HCL 1 MG/ML 2ML VIAL ONE (13:18)
[2022-02-26] MEDS ORDERED: CEFAZOLIN SODIUM 1 GM VIAL ONE (13:25)
[2022-02-26] MEDS ORDERED: BACITRACIN 28.4 GM OINT TP ONE (13:43)
[2022-02-26] MEDS ORDERED: EPHEDRINE SULFATE 50 MG/ML AMPULE ONE (14:11)
[2022-02-26] MEDS: ACETAMINOPHEN 325 MG TAB PO PRN ×2 (16:21→23:02)
[2022-02-26] MEDS: KCL 20 MEQ ERTAB PO PRN ×2 (16:25→17:58)
[2022-02-26] MEDS ORDERED: 0.9% NACL 250ML 250 ML ONE (20:24)
[2022-02-26] MEDS: VANCOMYCIN 1G/250ML KIT 250 ML IV SCH (20:28)
[2022-02-27] VITALS: BP 124/71
[2022-02-27 03:52] LABS: BASOPHILS % (AUTO) 0.5 % (0.0-5.0); EOSINOPHILS % (AUTO) 1.1 % (0.0-8.0); HEMATOCRIT 27.6 % (36-48); LYMPHOCYTES % (AUTO) 14.9 % (21.0-51.0); MEAN CORPUSCULAR HEMOGLOBIN 30.3 pg (27.0-33.0); MEAN CORPUSCULAR HGB CONC 30.4 g/dL (32.0-36.0); MEAN CORPUSCULAR VOLUME 99.6 fL (79-99); MONOCYTES % (AUTO) 7.3 % (3.0-13.0); NEUTROPHILS % (AUTO) 75.7 % (40.0-77.0); PLATELET COUNT (AUTO) 147 K/uL (130-400); RED BLOOD CELL COUNT(AUTO) 2.77 MIL/uL (4.00-5.50); RED CELL DISTRIBUTION WIDTH 13.6 % (11.0-15.5); WHITE BLOOD COUNT (AUTO) 6.6 K/uL (4.8-10.8)
[2022-02-27 04:00] VITALS: BP 102/62
[2022-02-27 04:11] LABS: CREATININE 1.5 mg/dL (0.5-1.5); MAGNESIUM 1.9 mg/dL (1.80-2.40); POTASSIUM 4.2 mmol/L (3.5-5.1)
[2022-02-27 04:13] LABS: PLATELET MORPHOLOGY PLT CLUMPS PRESENT
[2022-02-27] MEDS: INSULIN HUMULIN R 100 UNIT/ML 3ML SQ SCH ×3 (06:08→16:30)
[2022-02-27] MEDS: METOCLOPRAMIDE 10 MG/2 ML VIAL IVP SCH ×3 (06:43→16:30)
[2022-02-27] MEDS: CEFEPIME HCL 2 GM VIAL IVP SCH (06:44)
[2022-02-27 07:58] VITALS: BP 119/68
[2022-02-27] MEDS: PANTOPRAZOLE 40 MG/VIAL IVP SCH (09:03)
[2022-02-27] MEDS: MIDODRINE HCL 5 MG TABLET PO SCH ×2 (09:03→17:06)
[2022-02-27] MEDS: ENOXAPARIN SODIUM 80 MG/0.8 ML SQ SCH (09:08)
[2022-02-27 11:54] VITALS: BP 112/67
[2022-02-27 17:00] VITALS: BP 118/68
[2022-02-27] MEDS ORDERED: SULF1TAB41 PO (17:02)
== END 2022-02-27 17:45 | disposition home or self-care (01) | DRG 854 ==
LOC: EDH 17:17 → EDHIP 17:18 → 4DH 21:43
PROVIDERS: ADMIT Internal Medicine; ATTEND Internal Medicine
PROC: 0Y6U0Z0 Detachment at Left 3rd Toe, Complete, Open Approach (ICD-10-PCS; 2022-02-26)
PROC: 0Y6S0Z0 Detachment at Left 2nd Toe, Complete, Open Approach (ICD-10-PCS; principal; 2022-02-26 13:18)
DX: A41.9 Sepsis, unspecified organism (principal); E11.52 Type 2 diabetes mellitus with diabetic peripheral angiopathy with gangrene; M86.9 Osteomyelitis, unspecified; C92.11 Chronic myeloid leukemia, BCR/ABL-positive, in remission; I96 Gangrene, not elsewhere classified; L97.429 Non-pressure chronic ulcer of left heel and midfoot with unspecified severity; E11.621 Type 2 diabetes mellitus with foot ulcer; Z20.822 Contact with and (suspected) exposure to COVID-19; E11.69 Type 2 diabetes mellitus with other specified complication; E78.5 Hyperlipidemia, unspecified; I10 Essential (primary) hypertension; E66.9 Obesity, unspecified; K76.0 Fatty (change of) liver, not elsewhere classified; E11.65 Type 2 diabetes mellitus with hyperglycemia; Z79.01 Long term (current) use of anticoagulants; Z85.528 Personal history of other malignant neoplasm of kidney; Z89.432 Acquired absence of left foot; Z68.33 Body mass index [BMI] 33.0-33.9, adult
CPT/HCPCS: 36415; 71045; 80048; 80053; 81001; 82948; 83605; 83735; 84100; 85025; 85610; 85730; 86850; 86900; 86901; 87040; 87635; 93005; 93306; C9113; G0378; J0690; J0692; J1650; J1815; J2250; J2543; J2765; J3010; J3370; J3475; J3490; J7030; J7050

== ENCOUNTER → 2022-03-06 | Outpatient (CLI) | payer OTHER, MEDICARE ==
[~2022-03-06] MED LIST changes: -APIX5TAB PO; +CALC-1058 PO; +CEFD300C3 PO; +COLL30OI TP; +FERR324T PO; +FURO20TA4 PO; -GABA-529 PO; +LEVO5TAB13 PO; +LIDOCAINE HCL 4% LTA SOL 4 ML VIAL TP ONE; +MUPI22OI2 TP; +MV-M1TAB57 PO; +SENN-216 PO; +SULF1TAB41 PO
== END | disposition home or self-care (01) ==
LOC: WHH 11:05
PROVIDERS: ATTEND Family Medicine
DX: T87.89 Other complications of amputation stump (principal); E11.621 Type 2 diabetes mellitus with foot ulcer; L97.522 Non-pressure chronic ulcer of other part of left foot with fat layer exposed; L89.623 Pressure ulcer of left heel, stage 3; S71.002D Unspecified open wound, left hip, subsequent encounter; S91.104D Unspecified open wound of right lesser toe(s) without damage to nail, subsequent encounter; S71.001D Unspecified open wound, right hip, subsequent encounter; E11.52 Type 2 diabetes mellitus with diabetic peripheral angiopathy with gangrene; I96 Gangrene, not elsewhere classified; R18.0 Malignant ascites; R23.3 Spontaneous ecchymoses; K74.60 Unspecified cirrhosis of liver; C57.4 Malignant neoplasm of uterine adnexa, unspecified; Z79.4 Long term (current) use of insulin; Z79.899 Other long term (current) drug therapy; Z85.528 Personal history of other malignant neoplasm of kidney; Y83.5 Amputation of limb(s) as the cause of abnormal reaction of the patient, or of later complication, without mention of misadventure at the time of the procedure; X58.XXXD Exposure to other specified factors, subsequent encounter
CPT/HCPCS: 11042; 11045

== ENCOUNTER → 2022-03-27 | Outpatient (CLI) | payer OTHER, MEDICARE | END | disposition home or self-care (01) | LOC: WHH 11:07 | PROVIDERS: ATTEND Family Medicine | DX: T87.89 Other complications of amputation stump (principal); E11.621 Type 2 diabetes mellitus with foot ulcer; L97.522 Non-pressure chronic ulcer of other part of left foot with fat layer exposed; E11.622 Type 2 diabetes mellitus with other skin ulcer; L97.212 Non-pressure chronic ulcer of right calf with fat layer exposed; L89.623 Pressure ulcer of left heel, stage 3; S91.104D Unspecified open wound of right lesser toe(s) without damage to nail, subsequent encounter; S71.002D Unspecified open wound, left hip, subsequent encounter; E11.52 Type 2 diabetes mellitus with diabetic peripheral angiopathy with gangrene; I96 Gangrene, not elsewhere classified; R18.0 Malignant ascites; R23.3 Spontaneous ecchymoses; K74.60 Unspecified cirrhosis of liver; C57.4 Malignant neoplasm of uterine adnexa, unspecified; Z85.528 Personal history of other malignant neoplasm of kidney; Z79.4 Long term (current) use of insulin; Z79.899 Other long term (current) drug therapy; X58.XXXD Exposure to other specified factors, subsequent encounter; Y83.5 Amputation of limb(s) as the cause of abnormal reaction of the patient, or of later complication, without mention of misadventure at the time of the procedure | CPT/HCPCS: 11042; A6209 ==

== ENCOUNTER → 2022-04-01 | Outpatient (CLI) | payer OTHER, MEDICARE ==
[~2022-04-01] MED LIST changes: -LIDOCAINE HCL 4% LTA SOL 4 ML VIAL TP ONE
== END | disposition home or self-care (01) ==
LOC: RAH 12:54
PROVIDERS: ATTEND Family Medicine
DX: L97.819 Non-pressure chronic ulcer of other part of right lower leg with unspecified severity (principal); L97.829 Non-pressure chronic ulcer of other part of left lower leg with unspecified severity; E11.9 Type 2 diabetes mellitus without complications; E11.52 Type 2 diabetes mellitus with diabetic peripheral angiopathy with gangrene
CPT/HCPCS: 93925; 93970

== ENCOUNTER → 2022-04-10 | Outpatient (CLI) | payer OTHER, MEDICARE ==
[~2022-04-10] MED LIST changes: +LIDOCAINE HCL 4% LTA SOL 4 ML VIAL ONE
== END | disposition home or self-care (01) ==
LOC: WHH 10:52
PROVIDERS: ATTEND Family Medicine
DX: T87.89 Other complications of amputation stump (principal); E11.621 Type 2 diabetes mellitus with foot ulcer; L97.522 Non-pressure chronic ulcer of other part of left foot with fat layer exposed; L89.623 Pressure ulcer of left heel, stage 3; S91.104D Unspecified open wound of right lesser toe(s) without damage to nail, subsequent encounter; S71.002D Unspecified open wound, left hip, subsequent encounter; E11.622 Type 2 diabetes mellitus with other skin ulcer; L97.211 Non-pressure chronic ulcer of right calf limited to breakdown of skin; L98.491 Non-pressure chronic ulcer of skin of other sites limited to breakdown of skin; C57.4 Malignant neoplasm of uterine adnexa, unspecified; E11.52 Type 2 diabetes mellitus with diabetic peripheral angiopathy with gangrene; R18.0 Malignant ascites; R23.3 Spontaneous ecchymoses; I96 Gangrene, not elsewhere classified; K74.60 Unspecified cirrhosis of liver; Z85.828 Personal history of other malignant neoplasm of skin; Z79.4 Long term (current) use of insulin; Z79.899 Other long term (current) drug therapy; X58.XXXD Exposure to other specified factors, subsequent encounter; Y83.5 Amputation of limb(s) as the cause of abnormal reaction of the patient, or of later complication, without mention of misadventure at the time of the procedure
CPT/HCPCS: 11042; A6209

== ENCOUNTER → 2022-04-28 | Outpatient (CLI) | payer OTHER, MEDICARE ==
[~2022-04-28] MED LIST changes: -LIDOCAINE HCL 4% LTA SOL 4 ML VIAL ONE; +LIDOCAINE HCL 4% LTA SOL 4 ML VIAL TP ONE
== END | disposition home or self-care (01) ==
LOC: WHH 11:29
PROVIDERS: ATTEND Family Medicine
DX: T87.89 Other complications of amputation stump (principal); E11.621 Type 2 diabetes mellitus with foot ulcer; L97.522 Non-pressure chronic ulcer of other part of left foot with fat layer exposed; L89.623 Pressure ulcer of left heel, stage 3; S91.104D Unspecified open wound of right lesser toe(s) without damage to nail, subsequent encounter; S71.002D Unspecified open wound, left hip, subsequent encounter; E11.52 Type 2 diabetes mellitus with diabetic peripheral angiopathy with gangrene; I96 Gangrene, not elsewhere classified; C57.4 Malignant neoplasm of uterine adnexa, unspecified; R18.0 Malignant ascites; R23.3 Spontaneous ecchymoses; K74.60 Unspecified cirrhosis of liver; Z85.528 Personal history of other malignant neoplasm of kidney; Z79.4 Long term (current) use of insulin; Z79.899 Other long term (current) drug therapy; Y83.5 Amputation of limb(s) as the cause of abnormal reaction of the patient, or of later complication, without mention of misadventure at the time of the procedure
CPT/HCPCS: 11042; A6209

== ENCOUNTER → 2022-05-05 | Outpatient (CLI) | payer OTHER, MEDICARE | END | disposition home or self-care (01) | LOC: WHH 11:06 | PROVIDERS: ATTEND Family Medicine | DX: T87.89 Other complications of amputation stump (principal); E11.621 Type 2 diabetes mellitus with foot ulcer; L97.522 Non-pressure chronic ulcer of other part of left foot with fat layer exposed; L89.623 Pressure ulcer of left heel, stage 3; S91.104D Unspecified open wound of right lesser toe(s) without damage to nail, subsequent encounter; S71.002D Unspecified open wound, left hip, subsequent encounter; E11.52 Type 2 diabetes mellitus with diabetic peripheral angiopathy with gangrene; I96 Gangrene, not elsewhere classified; C57.4 Malignant neoplasm of uterine adnexa, unspecified; R18.0 Malignant ascites; R23.3 Spontaneous ecchymoses; K74.60 Unspecified cirrhosis of liver; Z85.528 Personal history of other malignant neoplasm of kidney; Z79.4 Long term (current) use of insulin; Z79.899 Other long term (current) drug therapy; Y83.5 Amputation of limb(s) as the cause of abnormal reaction of the patient, or of later complication, without mention of misadventure at the time of the procedure | CPT/HCPCS: G0463 ==

== ENCOUNTER 2022-05-12 11:55 | Day surgery (SDC) | payer OTHER, MEDICARE ==
[2022-05-08 14:08] LABS: BASOPHILS % (AUTO) 0.4 % (0.0-5.0); HEMATOCRIT 31.2 % (36-48); LYMPHOCYTES % (AUTO) 19.6 % (21.0-51.0); MEAN CORPUSCULAR HGB CONC 32.1 g/dL (32.0-36.0); MEAN CORPUSCULAR VOLUME 96.6 fL (79-99); MONOCYTES % (AUTO) 7.5 % (3.0-13.0); NEUTROPHILS % (AUTO) 71.1 % (40.0-77.0); PLATELET COUNT (AUTO) 167 K/uL (130-400); RED BLOOD CELL COUNT(AUTO) 3.23 MIL/uL (4.00-5.50); RED CELL DISTRIBUTION WIDTH 13.8 % (11.0-15.5); WHITE BLOOD COUNT (AUTO) 6.9 K/uL (4.8-10.8)
[2022-05-08 14:18] LABS: CREATININE 1.4 mg/dL (0.5-1.5); POTASSIUM 4.7 mmol/L (3.5-5.1)
[2022-05-08 14:20] LABS: INR 0.99 (0.85-1.15); PROTHROMBIN TIME 10.8 SEC (9.6-11.6)
[2022-05-08 14:22] LABS: PARTIAL THROMBOPLASTIN TIME 24.8 SEC (26.3-35.5)
[~2022-05-12] VITALS: Ht 152.4 cm; Wt 83.9 kg
[~2022-05-12 11:55] MED LIST changes: -LIDOCAINE HCL 4% LTA SOL 4 ML VIAL TP ONE
[2022-05-12] MEDS ORDERED: 0.9%NACL 1000ML 1,000 ML IV ONE (12:54)
[2022-05-12 13:02] VITALS: BP 106/61
[2022-05-12] MEDS ORDERED: LIDOCAINE HCL 400MG/20ML VIAL ONE (13:34)
[2022-05-12] MEDS ORDERED: MIDAZOLAM HCL 1 MG/ML 2ML VIAL ONE (13:57)
[2022-05-12] MEDS ORDERED: FENTANYL CITRATE PF 50 MCG/1 ML 2ML VIAL ONE (13:59)
[2022-05-12 15:00] VITALS: BP 104/61
[2022-05-12 15:15] VITALS: BP 115/65
[2022-05-12 15:30] VITALS: BP 113/67
== END 2022-05-12 15:40 | disposition home or self-care (01) ==
LOC: DAH 11:55
PROVIDERS: ATTEND Family Medicine
DX: C78.6 Secondary malignant neoplasm of retroperitoneum and peritoneum (principal); R18.0 Malignant ascites; E11.22 Type 2 diabetes mellitus with diabetic chronic kidney disease; I12.9 Hypertensive chronic kidney disease with stage 1 through stage 4 chronic kidney disease, or unspecified chronic kidney disease; N18.2 Chronic kidney disease, stage 2 (mild); E11.42 Type 2 diabetes mellitus with diabetic polyneuropathy; E11.319 Type 2 diabetes mellitus with unspecified diabetic retinopathy without macular edema; E11.43 Type 2 diabetes mellitus with diabetic autonomic (poly)neuropathy; K31.84 Gastroparesis; E11.621 Type 2 diabetes mellitus with foot ulcer; I70.262 Atherosclerosis of native arteries of extremities with gangrene, left leg; E11.52 Type 2 diabetes mellitus with diabetic peripheral angiopathy with gangrene; E66.01 Morbid (severe) obesity due to excess calories; F32.9 Major depressive disorder, single episode, unspecified; K21.9 Gastro-esophageal reflux disease without esophagitis; E78.00 Pure hypercholesterolemia, unspecified; Z87.891 Personal history of nicotine dependence; Z86.010 Personal history of colon polyps; Z98.890 Other specified postprocedural states; Z90.49 Acquired absence of other specified parts of digestive tract; Z82.49 Family history of ischemic heart disease and other diseases of the circulatory system; Z83.3 Family history of diabetes mellitus; Z82.0 Family history of epilepsy and other diseases of the nervous system; Z79.01 Long term (current) use of anticoagulants; Z79.899 Other long term (current) drug therapy; Z68.34 Body mass index [BMI] 34.0-34.9, adult
CPT/HCPCS: 80048; 85025; 85610; 85730; 36415; 49418; 75989; 82948; A7048; J3010; J3490; J7030; J2250; J1644; A4450; A4215; A4222; A4221; A4663; A4216; A4606; A4223 ×3; 10030; 11042; 99156; 99157

== ENCOUNTER → 2022-05-19 | Outpatient (CLI) | payer OTHER, MEDICARE ==
[~2022-05-19] MED LIST changes: +LIDOCAINE HCL 4% LTA SOL 4 ML VIAL TP ONE
== END | disposition home or self-care (01) ==
LOC: WHH 10:56
PROVIDERS: ATTEND Family Medicine
DX: T87.89 Other complications of amputation stump (principal); L89.623 Pressure ulcer of left heel, stage 3; E11.621 Type 2 diabetes mellitus with foot ulcer; L97.521 Non-pressure chronic ulcer of other part of left foot limited to breakdown of skin; L97.511 Non-pressure chronic ulcer of other part of right foot limited to breakdown of skin; E11.52 Type 2 diabetes mellitus with diabetic peripheral angiopathy with gangrene; I96 Gangrene, not elsewhere classified; C57.4 Malignant neoplasm of uterine adnexa, unspecified; R18.0 Malignant ascites; R23.3 Spontaneous ecchymoses; K74.60 Unspecified cirrhosis of liver; Z85.528 Personal history of other malignant neoplasm of kidney; Z79.4 Long term (current) use of insulin; Z79.899 Other long term (current) drug therapy; Y83.5 Amputation of limb(s) as the cause of abnormal reaction of the patient, or of later complication, without mention of misadventure at the time of the procedure
CPT/HCPCS: 11042

== ENCOUNTER → 2022-05-26 | Outpatient (CLI) | payer OTHER, MEDICARE ==
[~2022-05-26] MED LIST changes: +GENTAMICIN 15 GM CREAM TP ONE
== END | disposition home or self-care (01) ==
LOC: WHH 11:02
PROVIDERS: ATTEND Family Medicine
DX: T87.89 Other complications of amputation stump (principal); L89.623 Pressure ulcer of left heel, stage 3; E11.621 Type 2 diabetes mellitus with foot ulcer; L97.511 Non-pressure chronic ulcer of other part of right foot limited to breakdown of skin; L97.521 Non-pressure chronic ulcer of other part of left foot limited to breakdown of skin; S81.801D Unspecified open wound, right lower leg, subsequent encounter; E11.52 Type 2 diabetes mellitus with diabetic peripheral angiopathy with gangrene; I96 Gangrene, not elsewhere classified; C57.4 Malignant neoplasm of uterine adnexa, unspecified; R18.0 Malignant ascites; R23.3 Spontaneous ecchymoses; K74.60 Unspecified cirrhosis of liver; Z85.528 Personal history of other malignant neoplasm of kidney; Z79.4 Long term (current) use of insulin; Z79.899 Other long term (current) drug therapy; Y83.5 Amputation of limb(s) as the cause of abnormal reaction of the patient, or of later complication, without mention of misadventure at the time of the procedure; X58.XXXD Exposure to other specified factors, subsequent encounter
CPT/HCPCS: 11042; 87070; 87077; 87186; A4450

== ENCOUNTER → 2022-05-30 | Outpatient (CLI) | payer OTHER, MEDICARE ==
[~2022-05-30] MED LIST changes: -GENTAMICIN 15 GM CREAM TP ONE; -LIDOCAINE HCL 4% LTA SOL 4 ML VIAL TP ONE
[2022-05-30 13:05] LABS: HEMATOCRIT 31.1 % (36-48); MEAN CORPUSCULAR HEMOGLOBIN 31.2 pg (27.0-33.0); MEAN CORPUSCULAR HGB CONC 33.1 g/dL (32.0-36.0); MEAN CORPUSCULAR VOLUME 94.2 fL (79-99); RED BLOOD CELL COUNT(AUTO) 3.3 MIL/uL (4.00-5.50); RED CELL DISTRIBUTION WIDTH 13.2 % (11.0-15.5); WHITE BLOOD COUNT (AUTO) 9.2 K/uL (4.8-10.8)
[2022-05-30 13:27] LABS: INR 1.01 (0.85-1.15)
[2022-05-30 13:28] LABS: PARTIAL THROMBOPLASTIN TIME 26.8 SEC (26.3-35.5)
== END | disposition home or self-care (01) ==
LOC: EDSTATUS 11:30 → DAH 12:25
PROVIDERS: ATTEND Family Medicine
DX: R18.8 Other ascites (principal); E11.9 Type 2 diabetes mellitus without complications
CPT/HCPCS: 36415; 76705; 82948; 85027; 85610; 85730

== ENCOUNTER → 2022-06-02 | Outpatient (CLI) | payer OTHER, MEDICARE ==
[~2022-06-02] MED LIST changes: +LIDOCAINE HCL 4% LTA SOL 4 ML VIAL TP ONE
== END | disposition home or self-care (01) ==
LOC: WHH 10:53
PROVIDERS: ATTEND Family Medicine
DX: L89.623 Pressure ulcer of left heel, stage 3 (principal); T87.89 Other complications of amputation stump; E11.621 Type 2 diabetes mellitus with foot ulcer; L97.511 Non-pressure chronic ulcer of other part of right foot limited to breakdown of skin; L97.521 Non-pressure chronic ulcer of other part of left foot limited to breakdown of skin; S81.801D Unspecified open wound, right lower leg, subsequent encounter; S91.301D Unspecified open wound, right foot, subsequent encounter; E11.52 Type 2 diabetes mellitus with diabetic peripheral angiopathy with gangrene; I96 Gangrene, not elsewhere classified; C57.4 Malignant neoplasm of uterine adnexa, unspecified; R18.0 Malignant ascites; R23.3 Spontaneous ecchymoses; K74.60 Unspecified cirrhosis of liver; Z85.528 Personal history of other malignant neoplasm of kidney; Z79.4 Long term (current) use of insulin; Z79.899 Other long term (current) drug therapy; Y83.5 Amputation of limb(s) as the cause of abnormal reaction of the patient, or of later complication, without mention of misadventure at the time of the procedure; X58.XXXD Exposure to other specified factors, subsequent encounter
CPT/HCPCS: 11042; A6197

== ENCOUNTER → 2022-06-09 | Outpatient (CLI) | payer OTHER, MEDICARE | END | disposition home or self-care (01) | LOC: WHH 10:58 | PROVIDERS: ATTEND Family Medicine | DX: E11.621 Type 2 diabetes mellitus with foot ulcer (principal); L97.512 Non-pressure chronic ulcer of other part of right foot with fat layer exposed; L97.521 Non-pressure chronic ulcer of other part of left foot limited to breakdown of skin; T87.89 Other complications of amputation stump; S81.801D Unspecified open wound, right lower leg, subsequent encounter; S91.301D Unspecified open wound, right foot, subsequent encounter; E11.52 Type 2 diabetes mellitus with diabetic peripheral angiopathy with gangrene; I96 Gangrene, not elsewhere classified; C57.4 Malignant neoplasm of uterine adnexa, unspecified; R18.0 Malignant ascites; R23.3 Spontaneous ecchymoses; K74.60 Unspecified cirrhosis of liver; Z85.528 Personal history of other malignant neoplasm of kidney; Z79.4 Long term (current) use of insulin; Z79.899 Other long term (current) drug therapy; Y83.5 Amputation of limb(s) as the cause of abnormal reaction of the patient, or of later complication, without mention of misadventure at the time of the procedure; X58.XXXD Exposure to other specified factors, subsequent encounter | CPT/HCPCS: 11042; A6197 ==

== ENCOUNTER → 2022-06-16 | Outpatient (CLI) | payer OTHER, MEDICARE | END | disposition home or self-care (01) | LOC: WHH 10:57 | PROVIDERS: ATTEND Family Medicine | DX: E11.621 Type 2 diabetes mellitus with foot ulcer (principal); L97.512 Non-pressure chronic ulcer of other part of right foot with fat layer exposed; L97.521 Non-pressure chronic ulcer of other part of left foot limited to breakdown of skin; T87.89 Other complications of amputation stump; S81.801D Unspecified open wound, right lower leg, subsequent encounter; S91.301D Unspecified open wound, right foot, subsequent encounter; L89.623 Pressure ulcer of left heel, stage 3; E11.52 Type 2 diabetes mellitus with diabetic peripheral angiopathy with gangrene; I96 Gangrene, not elsewhere classified; C57.4 Malignant neoplasm of uterine adnexa, unspecified; R18.0 Malignant ascites; R23.3 Spontaneous ecchymoses; K74.60 Unspecified cirrhosis of liver; Z85.528 Personal history of other malignant neoplasm of kidney; Z79.4 Long term (current) use of insulin; Z79.899 Other long term (current) drug therapy; Y83.5 Amputation of limb(s) as the cause of abnormal reaction of the patient, or of later complication, without mention of misadventure at the time of the procedure; X58.XXXD Exposure to other specified factors, subsequent encounter | CPT/HCPCS: 11042; A6197 ==

== ENCOUNTER → 2022-06-30 | Outpatient (CLI) | payer OTHER, MEDICARE | END | disposition home or self-care (01) | LOC: WHH 11:18 | PROVIDERS: ATTEND Family Medicine | DX: E11.621 Type 2 diabetes mellitus with foot ulcer (principal); L97.512 Non-pressure chronic ulcer of other part of right foot with fat layer exposed; L97.521 Non-pressure chronic ulcer of other part of left foot limited to breakdown of skin; T87.89 Other complications of amputation stump; S81.801D Unspecified open wound, right lower leg, subsequent encounter; S91.104A Unspecified open wound of right lesser toe(s) without damage to nail, initial encounter; L89.623 Pressure ulcer of left heel, stage 3; E11.52 Type 2 diabetes mellitus with diabetic peripheral angiopathy with gangrene; I96 Gangrene, not elsewhere classified; C57.4 Malignant neoplasm of uterine adnexa, unspecified; R18.0 Malignant ascites; R23.3 Spontaneous ecchymoses; K74.60 Unspecified cirrhosis of liver; Z85.528 Personal history of other malignant neoplasm of kidney; Z79.4 Long term (current) use of insulin; Z79.899 Other long term (current) drug therapy; Y83.5 Amputation of limb(s) as the cause of abnormal reaction of the patient, or of later complication, without mention of misadventure at the time of the procedure; X58.XXXD Exposure to other specified factors, subsequent encounter; X58.XXXA Exposure to other specified factors, initial encounter; Y93.89 Activity, other specified; Y92.89 Other specified places as the place of occurrence of the external cause; Y99.8 Other external cause status | CPT/HCPCS: 11042; A6197 ==

== ENCOUNTER → 2022-07-07 | Outpatient (CLI) | payer OTHER, MEDICARE | END | disposition home or self-care (01) | LOC: WHH 11:05 | PROVIDERS: ATTEND Family Medicine | DX: E11.621 Type 2 diabetes mellitus with foot ulcer (principal); L97.512 Non-pressure chronic ulcer of other part of right foot with fat layer exposed; L97.521 Non-pressure chronic ulcer of other part of left foot limited to breakdown of skin; T87.89 Other complications of amputation stump; S81.801D Unspecified open wound, right lower leg, subsequent encounter; S91.104D Unspecified open wound of right lesser toe(s) without damage to nail, subsequent encounter; L89.623 Pressure ulcer of left heel, stage 3; E11.52 Type 2 diabetes mellitus with diabetic peripheral angiopathy with gangrene; I96 Gangrene, not elsewhere classified; C57.4 Malignant neoplasm of uterine adnexa, unspecified; R18.0 Malignant ascites; R23.3 Spontaneous ecchymoses; K74.60 Unspecified cirrhosis of liver; Z85.528 Personal history of other malignant neoplasm of kidney; Z79.4 Long term (current) use of insulin; Z79.899 Other long term (current) drug therapy; Y83.5 Amputation of limb(s) as the cause of abnormal reaction of the patient, or of later complication, without mention of misadventure at the time of the procedure; X58.XXXD Exposure to other specified factors, subsequent encounter | CPT/HCPCS: 11042; A6197 ==

== ENCOUNTER → 2022-07-14 | Outpatient (CLI) | payer OTHER, MEDICARE | END | disposition home or self-care (01) | LOC: WHH 10:58 | PROVIDERS: ATTEND Family Medicine | DX: E11.621 Type 2 diabetes mellitus with foot ulcer (principal); L97.511 Non-pressure chronic ulcer of other part of right foot limited to breakdown of skin; L97.521 Non-pressure chronic ulcer of other part of left foot limited to breakdown of skin; T87.89 Other complications of amputation stump; L89.623 Pressure ulcer of left heel, stage 3; E11.52 Type 2 diabetes mellitus with diabetic peripheral angiopathy with gangrene; I96 Gangrene, not elsewhere classified; I87.2 Venous insufficiency (chronic) (peripheral); C57.4 Malignant neoplasm of uterine adnexa, unspecified; R18.0 Malignant ascites; R23.3 Spontaneous ecchymoses; K74.60 Unspecified cirrhosis of liver; Z85.528 Personal history of other malignant neoplasm of kidney; Z79.4 Long term (current) use of insulin; Z79.899 Other long term (current) drug therapy; Y83.5 Amputation of limb(s) as the cause of abnormal reaction of the patient, or of later complication, without mention of misadventure at the time of the procedure | CPT/HCPCS: G0463 ==

== ENCOUNTER → 2022-07-28 | Outpatient (CLI) | payer OTHER, MEDICARE | END | disposition home or self-care (01) | LOC: WHH 11:05 | PROVIDERS: ATTEND Family Medicine | DX: E11.621 Type 2 diabetes mellitus with foot ulcer (principal); L97.512 Non-pressure chronic ulcer of other part of right foot with fat layer exposed; L97.521 Non-pressure chronic ulcer of other part of left foot limited to breakdown of skin; T87.89 Other complications of amputation stump; L89.623 Pressure ulcer of left heel, stage 3; E11.52 Type 2 diabetes mellitus with diabetic peripheral angiopathy with gangrene; I96 Gangrene, not elsewhere classified; I87.2 Venous insufficiency (chronic) (peripheral); C57.4 Malignant neoplasm of uterine adnexa, unspecified; R18.0 Malignant ascites; R23.3 Spontaneous ecchymoses; K74.60 Unspecified cirrhosis of liver; Z85.528 Personal history of other malignant neoplasm of kidney; Z79.4 Long term (current) use of insulin; Z79.899 Other long term (current) drug therapy; Y83.5 Amputation of limb(s) as the cause of abnormal reaction of the patient, or of later complication, without mention of misadventure at the time of the procedure | CPT/HCPCS: 11042; A6197; A4450 ==

== ENCOUNTER → 2022-08-04 | Outpatient (CLI) | payer OTHER, MEDICARE ==
[~2022-08-04] MED LIST changes: -LIDOCAINE HCL 4% LTA SOL 4 ML VIAL TP ONE
== END | disposition home or self-care (01) ==
LOC: WHH 11:07
PROVIDERS: ATTEND Family Medicine
DX: E11.621 Type 2 diabetes mellitus with foot ulcer (principal); L97.512 Non-pressure chronic ulcer of other part of right foot with fat layer exposed; T87.89 Other complications of amputation stump; L89.623 Pressure ulcer of left heel, stage 3; E11.52 Type 2 diabetes mellitus with diabetic peripheral angiopathy with gangrene; I96 Gangrene, not elsewhere classified; I87.2 Venous insufficiency (chronic) (peripheral); C57.4 Malignant neoplasm of uterine adnexa, unspecified; R18.0 Malignant ascites; R23.3 Spontaneous ecchymoses; K74.60 Unspecified cirrhosis of liver; Z85.528 Personal history of other malignant neoplasm of kidney; Z79.4 Long term (current) use of insulin; Z79.899 Other long term (current) drug therapy; Y83.5 Amputation of limb(s) as the cause of abnormal reaction of the patient, or of later complication, without mention of misadventure at the time of the procedure
CPT/HCPCS: G0463; A6197

== ENCOUNTER → 2022-08-27 | Outpatient (CLI) | payer OTHER, MEDICARE ==
[~2022-08-27] MED LIST changes: -CALC-1058 PO; -CALC-1125 PO; -CEFD300C3 PO; -COLL30OI TP; +INSU100I24 SQ; +LIDOCAINE HCL 4% LTA SOL 4 ML VIAL TP ONE; -MIDO10TA PO; -MUPI22OI2 TP; -SULF1TAB41 PO
== END | disposition home or self-care (01) ==
LOC: WHH 10:05
PROVIDERS: ATTEND Podiatrist Foot & Ankle Surgery
DX: T87.89 Other complications of amputation stump (principal); E11.621 Type 2 diabetes mellitus with foot ulcer; L97.512 Non-pressure chronic ulcer of other part of right foot with fat layer exposed; L89.623 Pressure ulcer of left heel, stage 3; E11.52 Type 2 diabetes mellitus with diabetic peripheral angiopathy with gangrene; I96 Gangrene, not elsewhere classified; I87.2 Venous insufficiency (chronic) (peripheral); C57.4 Malignant neoplasm of uterine adnexa, unspecified; R18.0 Malignant ascites; R23.3 Spontaneous ecchymoses; K74.60 Unspecified cirrhosis of liver; Z85.528 Personal history of other malignant neoplasm of kidney; Z79.4 Long term (current) use of insulin; Z79.899 Other long term (current) drug therapy; Y83.5 Amputation of limb(s) as the cause of abnormal reaction of the patient, or of later complication, without mention of misadventure at the time of the procedure
CPT/HCPCS: G0463; A4649; A4450

== ENCOUNTER → 2022-09-17 | Outpatient (CLI) | payer OTHER, MEDICARE ==
[~2022-09-17] MED LIST changes: -LIDOCAINE HCL 4% LTA SOL 4 ML VIAL TP ONE
== END | disposition home or self-care (01) ==
LOC: WHH 10:05
PROVIDERS: ATTEND Podiatrist Foot & Ankle Surgery
DX: T87.89 Other complications of amputation stump (principal); L89.623 Pressure ulcer of left heel, stage 3; E11.621 Type 2 diabetes mellitus with foot ulcer; L97.511 Non-pressure chronic ulcer of other part of right foot limited to breakdown of skin; E11.52 Type 2 diabetes mellitus with diabetic peripheral angiopathy with gangrene; I96 Gangrene, not elsewhere classified; I87.2 Venous insufficiency (chronic) (peripheral); C57.4 Malignant neoplasm of uterine adnexa, unspecified; R18.0 Malignant ascites; R23.3 Spontaneous ecchymoses; K74.60 Unspecified cirrhosis of liver; Z79.4 Long term (current) use of insulin; Z79.899 Other long term (current) drug therapy; Z85.528 Personal history of other malignant neoplasm of kidney; Y83.5 Amputation of limb(s) as the cause of abnormal reaction of the patient, or of later complication, without mention of misadventure at the time of the procedure
CPT/HCPCS: G0463